=== PATIENT | female | born 1950 | race African-American/Black ===

== ENCOUNTER 2016-12-23 10:15 | Emergency (ER) | payer OTHER, MEDICARE ==
[~2016-12-23] VITALS: Ht 170.2 cm; Wt 77.1 kg
[2016-12-23] MEDS ORDERED: NIFEDIPINE ER60 M1 PO (10:52)
[2016-12-23] MEDS ORDERED: LEVOTHYROXINE75 MCG PO (10:53)
[2016-12-23] MEDS ORDERED: HYDROCHLOROTHIA25 M1 PO (10:53)
[2016-12-23] MEDS ORDERED: LINZESS290 MC1 PO (10:53)
--- NOTE | 2016-12-23 11:05 | ED AMS/SEIZURE/WEAK/DIZZY ---
History of Present Illness General Chief Complaint: Syncope and Near-Syncope Stated Complaint: BIBA NEAR SYNCOPE Source: patient, family, old records, EMS, orthostatic VS by EMS WNL Exam Limitations: no limitations Vital Signs & Intake/Output Vital Signs & Intake/Output Vital Signs Date Time Temp Pulse Resp B/P B/P Pulse O2 O2 Flow FiO2 Mean Ox Delivery Rate 12/23 1026 97.0 15 124/87 98 Room Air Allergies Coded Allergies: No Known Allergies (12/23/16) Reconcile Medications Hydrochlorothiazide 25 MG TABLET 1 TAB PO DAILY HEART (Reported) Levothyroxine Sodium 75 MCG TABLET 1 TAB PO DAILY AC THYROID (Reported) Linaclotide (Linzess) 290 MCG CAPSULE 1 CAP PO DAILY PRN GI (Reported) Nifedipine (Nifedipine ER) 60 MG TABLET.ER 1 TAB PO DAILY HEART (Reported) Triage Note: PT PRESENTS TO ER C/O OF A NEAR SYNCOPE EPISODE. PT STATES SHE WAS WALKING AROUND IN HER KITCHEN AND FELT VERY DIZZYU AND LIGHTHEADED. PT STATES HER AIR HAS NOT BEEN WORKING WELL. PT DENIES ANY OTHER COMPLAINTS. PER EMS PT REPORTED THAT SHE HAD FELT LIGHTHEADED FOR OVER A WEEK BS 189 FOR EMS AND PT HAS A 20G TO LAC Triage Nurses Notes Reviewed? yes Onset: Just prior to arrival Duration: minute(s):, better, constant Timing: recent history Injury Environment: home Severity: severe Modifying Factors: Improves With: rest. Worsens With: movement. LMP (ages 10-50): post menopausal : No Patient currently breastfeeds: No HPI: For a long period of time Past History Travel History Traveled to [place] past 21 day No Medical History Any Pertinent Medical History? see below for history Cardiovascular: hypertension Endocrine: hypothyroidism Surgical History Surgical History: non-contributory Psychosocial History What is your primary language Kyrgyz Tobacco Use: Never used Family History Hx Contributory? No Review of Systems Review of Systems Constitutional: Reports: see HPI, malaise, weakness. EENTM: Reports: no symptoms. Respiratory: Reports: no symptoms. Cardiovascular: Reports: no symptoms. GI: Reports: no symptoms. Genitourinary: Reports: no symptoms. Musculoskeletal: Reports: no symptoms. Skin: Reports: no symptoms. Neurological/Psychological: Reports: see HPI. Hematologic/Endocrine: Reports: no symptoms. Immunologic/Allergic: Reports: no symptoms. All Other Systems: Reviewed and Negative Physical Exam Physical Exam General Appearance: well developed/nourished, no apparent distress, awake, anxious Head: atraumatic, normal appearance Eyes: Bilateral: normal appearance, PERRL, EOMI. Ears, Nose, Throat: normal pharynx, normal ENT inspection, hearing grossly normal (with hearing aids) Neck: normal inspection, supple, full range of motion, no midline tenderness Respiratory: normal breath sounds, chest non-tender, no respiratory distress, quiet respiration, lungs clear Cardiovascular: regular rate/rhythm, normal peripheral pulses, norml femoral pulses equa Peripheral Pulses: 4+ carotid (R), 4+ carotid (L) Gastrointestinal: normal bowel sounds, soft, non-tender, no organomegaly Back: normal inspection, normal range of motion Extremities: normal range of motion, no ligament instability Neurologic/Psych: no motor/sensory deficits, awake, alert, oriented x 3, normal gait, normal mood/affect, 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 Skin: intact, normal color, warm/dry Lymphatic: no anterior cervical soto Core Measures ACS in differential dx? Yes ASA ordered for poss ACS? Yes-ordered CVA/TIA Diagnosis: No Severe Sepsis Present: No Septic Shock Present: No Progress Differential Diagnosis: arrythmia, benign positional vertigo, CVA/stroke, electrolyte imbalance, hypoglycemia, intracranial Hem., presyncope Plan of Care: Orders Procedure Date/time Status TSH REFLEX 12/23 1043 Complete TROPONIN LEVEL 12/23 1043 Complete MAGNESIUM 12/23 1043 Complete COMPREHENSIVE METABOLIC PANEL 12/23 1043 Complete CBC WITHOUT DIFFERENTIAL 12/23 1043 Complete EKG 12/23 1033 Active Laboratory Tests 12/23/16 1058: Anion Gap 11, Estimated GFR > 60, BUN/Creatinine Ratio 20.0, Glucose 121 H, Calcium 10.1, Magnesium 2.0, Total Bilirubin 0.5, AST 25, ALT 36, Alkaline Phosphatase 74, Troponin I < 0.01, Total Protein 7.5, Albumin 4.4, Globulin 3.1, Albumin/Globulin Ratio 1.4, TSH &T3 &Free T4 Intrp 0.621, CBC w Diff NO MAN DIFF REQ, RBC 4.33, MCV 93.5, MCH 31.9 H, RDW 13.0, MPV 8.8, Gran % 41.0 L, Lymphocytes % 40.1, Monocytes % 15.7 H, Eosinophils % 2.7, Basophils % 0.5, Absolute Granulocytes 1.0 L, Absolute Lymphocytes 1.0 L, Absolute Monocytes 0.4, Absolute Eosinophils 0.1, Absolute Basophils 0, PUBS MCHC 34.1 Diagnostic Imaging: Viewed by Me: CT Scan. Discussed w/RAD: CT Scan. Radiology Impression: No evidence of intracranial hemorrhage. No acute findings compared to 01/13/2009. Initial ED EKG: normal axis, normal intervals, normal p-waves, normal QRS complex, normal sinus rhythm, no ST T wave changes Prior EKG: unchanged Rhythm Strip: normal sinus rhythm Departure Departure Time of Disposition: 1248 Disposition: HOME OR SELF CARE Condition: Stable Clinical Impression Primary Impression: Pre-syncope Secondary Impressions: Vertigo Referrals: BRIGETTE THOMAS MD (PCP/Family) Departure Forms: Customer Survey General Discharge Information Prescriptions: Current Visit Scripts Meclizine HCl 1 TAB PO TIDPRN PRN dizziness #30 TAB Scopolamine Hydrobromide (Transderm-Scop) 1 PAT TOP Q3D PRN dizziness #4 PAT apply to the hairless area behind 1 ear
[2016-12-23 11:10] LABS: ABSOLUTE BASOPHIL COUNT 0 /CUMM (0.0-0.2); ABSOLUTE EOSINOPHIL COUNT 0.1 /CUMM (0.0-0.7); ABSOLUTE MONOCYTE COUNT 0.4 /CUMM (0.10-0.60); BASOPHIL % 0.5 % (0.0-2.0); EOSINOPHIL % 2.7 % (0-5); HEMATOCRIT 40.5 % (37-47); MEAN CORPUSCULAR HGB 31.9 PG (27.0-31.0); MEAN CORPUSCULAR HGB CONC 34.1 G/DL (33.0-37.0); MEAN CORPUSCULAR VOLUME 93.5 FL (81.0-99.0); MEAN PLATELET VOLUME 8.8 FL (7.4-10.4); PLATELET COUNT 185 /CUMM (130-400); RED BLOOD CELL CT 4.33 /CUMM (4.20-5.40); WHITE BLOOD CELL COUNT 2.5 /CUMM (4.8-10.8)
--- NOTE | 2016-12-23 12:25 | CT SCAN REPORT ---
EXAMINATION: CT HEAD WITHOUT CONTRAST CLINICAL INFORMATION: Near syncope with dizziness and nystagmus on exam. COMPARISON: Head CT from 01/13/2009 TECHNIQUE: Contiguous axial imaging was performed from the skull base to vertex without intravenous administration of contrast. DLP: 647 mGy-cm FINDINGS: The brain parenchyma has normal attenuation with well-preserved sullivan-white matter differentiation. No evidence of an acute major vascular territory infarction, hemorrhage, extra axial fluid collection, focal mass effect or midline shift. The ventricles have normal size and configuration. The calvarium is intact and the visualized paranasal sinuses, mastoid air cells and middle ear cavities are well aerated. The examined portions of the orbits, globes and temporomandibular joints are unremarkable. IMPRESSION: No evidence of intracranial hemorrhage. No acute findings compared to 01/13/2009.
[2016-12-23] MEDS ORDERED: MECLIZINE HCL25 MG PO (12:54)
[2016-12-23] MEDS ORDERED: TRANSDERM-SCOP1 EACH TOP (12:54)
[2016-12-23 13:07] VITALS: BP 121/63
== END 2016-12-23 13:08 ==
LOC: ERH 10:15
PROVIDERS: Emergency Medicine
DX: R55 Syncope and collapse (principal); R42 Dizziness and giddiness; E03.9 Hypothyroidism, unspecified
CPT/HCPCS: 93005; 93010

== ENCOUNTER 2017-11-08 08:02 | Emergency (ER) | payer OTHER, MEDICARE ==
[~2017-11-08] VITALS: Ht 167.6 cm; Wt 77.1 kg
[~2017-11-08 08:02] MED LIST: HYDROCHLOROTHIA25 M1 PO; LEVOTHYROXINE75 MCG PO; LINZESS290 MC1 PO; MECLIZINE HCL25 MG PO; NIFEDIPINE ER60 M1 PO; TRANSDERM-SCOP1 EACH TOP
--- NOTE | 2017-11-08 08:07 | ED UPPER/LOWER EXTREMITY COMPL ---
History of Present Illness General Chief Complaint: Lower Extremity Problems Stated Complaint: LEFT KNEE PAIN Source: patient Exam Limitations: no limitations Vital Signs & Intake/Output Vital Signs & Intake/Output Vital Signs Date Time Temp Pulse Resp B/P B/P Pulse O2 O2 Flow FiO2 Mean Ox Delivery Rate 11/08 1030 74 18 Room Air 11/08 0850 97.2 70 18 135/80 96 Room Air 11/08 0814 97.5 68 20 130/73 100 Room Air Allergies Coded Allergies: No Known Allergies (12/23/16) Reconcile Medications Atenolol 50 MG TABLET 1 TAB PO DAILY HYPERTENSION (Reported) Atorvastatin Calcium 20 MG TABLET 1 TAB PO DAILY HIGH CHOLESTEROL (Reported) Hydrochlorothiazide 25 MG TABLET 1 TAB PO DAILY HEART (Reported) Levothyroxine Sodium 75 MCG TABLET 1 TAB PO DAILY AC THYROID (Reported) Naproxen 375 MG TABLET 1 TAB PO BID PRN pain with food Nifedipine (Nifedipine ER) 60 MG TABLET.ER 1 TAB PO DAILY HEART (Reported) Scopolamine Hydrobromide (Transderm-Scop) 1.5MG/3DAY PATCH.TD.3 1 PAT TOP Q3D PRN dizziness apply to the hairless area behind 1 ear Tramadol HCl 50 MG TABLET 1 TAB PO BIDP PRN PAIN Triage Nurses Notes Reviewed? yes Onset: Gradual Duration: getting worse Timing: recent history Severity: severe Severity Numbers: 9 HPI: Patient is a 67-year-old female who presents emergency room with concerns of a 2 week history of gradual onset of worsening persistent left generalized knee pain however today after standing up from a seated position she had acute onset of left lateral knee pain and a audible "popping sensation" with patient was unable to ambulate due to the pain which patient was brought in by ambulance. Patient has not taken medications for her pain. Denies any significant left knee pain history or surgical intervention. Denies any ankle or hip pain. States ambulation and palpation makes worse. Past History Travel History Traveled to [place] past 21 day No Medical History Any Pertinent Medical History? see below for history Cardiovascular: hypertension Endocrine: hypothyroidism Surgical History Surgical History: non-contributory Psychosocial History What is your primary language Setswana Family History Hx Contributory? No Review of Systems Review of Systems Constitutional: Reports: no symptoms. EENTM: Reports: no symptoms. Respiratory: Reports: no symptoms. Cardiovascular: Reports: no symptoms. Gastrointestinal/Abdominal: Reports: no symptoms. Genitourinary: Reports: no symptoms. Musculoskeletal: Reports: see HPI, joint pain. Skin: Reports: no symptoms. Neurological/Psychological: Reports: no symptoms. Hematologic/Endocrine: Reports: no symptoms. Immunological: Reports: no symptoms. All Other Systems: Reviewed and Negative Physical Exam Physical Exam General Appearance: no apparent distress, alert, comfortable Head: atraumatic Eyes: Bilateral: normal appearance. Ears, Nose, Throat: hearing grossly normal Neck: normal inspection Cardiovascular/Respiratory: no respiratory distress Neurologic/Tendon: normal sensation, normal motor functions, normal tendon functions, responds to pain, no evidence tendon injury, no pulse deficit Skin: intact, normal color, warm/dry Comments: Left hip normal inspection nontender straight leg raise able to be performed with mild pain to left knee Left knee normal inspection mild generalized point tenderness noted Decreased active range of motion left lateral joint line point tenderness negative valgus stress test negative varus stress test negative anterior drawer test posterior drawer test Left ankle normal inspection nontender Progress Differential Diagnosis: compartment syndrome, contusion, dislocation, DVT, fracture, gout, septic arthritis, sprain, tendon injury Plan of Care: Orders Procedure Date/time Status XRY-KNEE COMPLETE LEFT 11/08 812 Active Current Medications Sig/Stephie Start time Last Medication Dose Stop Time Status Admin Ibuprofen 600 MG ONCE ONE 11/08 814 UNVr (Motrin) 11/09 815 Tramadol HCl 50 MG ONCE ONE 11/08 814 UNVr (Ultram) 11/09 815 Patient on examination was neurovascularly intact, x-rays will be performed X-rays resulted no osseous injury discussed results with patient Knee immobilizer was placed to left knee PRE/POST NEUROVASCULAR WAS INTACT. Diagnostic Imaging: Viewed by Me: Radiology Read. Radiology Impression: no fracture Comments: PATIENT: DOROTHY TARIQ PRESENT AGE: 67 PATIENT ACCOUNT NO: [id number] : 48 LOCATION: [facility] ORDERING PHYSICIAN: Edilson COLMENARES SERVICE DATE: 11/08/17 EXAM TYPE: RAD - XRY-KNEE COMPLETE LEFT EXAMINATION: XR KNEE, LEFT CLINICAL INFORMATION: Left knee pain COMPARISON: None TECHNIQUE: Four views of the left knee. FINDINGS: Alignment is normal. No acute fracture, subluxation or joint effusion. Tricompartmental osteophyte formation. Lateral tibiofemoral joint space is moderately narrowed. No lytic or blastic bone lesion. No focal soft tissue swelling. IMPRESSION: 1. No acute osseous injury at the left knee. 2. Tricompartmental osteoarthritis (mild at the medial tibiofemoral compartment, [id number] at the patellofemoral compartment and moderate at the lateral tibiofemoral compartment). DICTATED BY: Scott Lima MD DATE/TIME DICTATED:11/08/171026 Departure Departure Disposition: HOME OR SELF CARE Condition: Stable Clinical Impression Primary Impression: Left knee pain Secondary Impressions: Arthritis, Left knee sprain Referrals: Cali SANDHU,Geoffrey Leiva MD,Juan Samuel Additional Instructions: As discussed begin icing the area 20 minutes every 2 hours begin the prescription of naproxen for pain and tramadol for breakthrough pain relief, if no better on Wednesday follow up with orthopedic Dr. LEIVA. If symptoms worsen return to emergency room begin using the crutches until YOU can walk without pain in the knee brace PROVIDED TO YOU until you are symptom-free Prescriptions are waiting at [facility] Departure Forms: Customer Survey General Discharge Information Prescriptions: Current Visit Scripts Tramadol HCl 1 TAB PO BIDP PRN PAIN #12 TAB Naproxen 1 TAB PO BID PRN pain #20 TAB with food
[2017-11-08 08:50] VITALS: BP 135/80
[2017-11-08] MEDS ORDERED: ATORVASTATIN CA20 M1 PO (08:51)
[2017-11-08] MEDS ORDERED: ATENOLOL50 M1 PO (08:52)
--- NOTE | 2017-11-08 10:33 | RADIOLOGY REPORT ---
EXAMINATION: XR KNEE, LEFT CLINICAL INFORMATION: Left knee pain COMPARISON: None TECHNIQUE: Four views of the left knee. FINDINGS: Alignment is normal. No acute fracture, subluxation or joint effusion. Tricompartmental osteophyte formation. Lateral tibiofemoral joint space is moderately narrowed. No lytic or blastic bone lesion. No focal soft tissue swelling. IMPRESSION: 1. No acute osseous injury at the left knee. 2. Tricompartmental osteoarthritis (mild at the medial tibiofemoral compartment, [id number] at the patellofemoral compartment and moderate at the lateral tibiofemoral compartment).
[2017-11-08] MEDS ORDERED: TRAMADOL HCL50 M1 PO (10:41)
[2017-11-08] MEDS ORDERED: NAPROXEN375 M2 PO (10:42)
== END 2017-11-08 10:55 ==
LOC: ERH 08:02
DX: S83.92XA Sprain of unspecified site of left knee, initial encounter (principal); M25.562 Pain in left knee; M17.12 Unilateral primary osteoarthritis, left knee; X58.XXXA Exposure to other specified factors, initial encounter; Y93.9 Activity, unspecified; Y92.9 Unspecified place or not applicable
CPT/HCPCS: 73562-LT